=== PATIENT | female | born 1965 | race Caucasian/White ===

== ENCOUNTER 2016-09-07 11:31 | Emergency (ER) | payer MEDICAID ==
[~2016-09-07] VITALS: Ht 154.9 cm; Wt 66.3 kg
[~2016-09-07 11:31] MED LIST: AMLO10TA4 PO; FAMO-79 PO; FLUT1DIS3 INH; FOLI-17 PO; PRED20TA PO; THIA100T6 PO
[2016-09-07] MEDS ORDERED: SODIUM CHLORIDE 0.9% 1,000ML IVBOLUS ONE (12:00)
[2016-09-07] MEDS ORDERED: SODIUM CHLORIDE FLUSH 10ML SYR IVF ONE (12:00)
[2016-09-07 12:33] LABS: BLOOD UREA NITROGEN 3 mg/dL (7-18)
[2016-09-07 12:37] LABS: ASPARTATE AMINO TRANSFERASE 58 U/L (15-37)
[2016-09-07] MEDS ORDERED: KETOROLAC 30 MG/1 ML ONE (16:54)
[2016-09-07] MEDS ORDERED: PROMETHAZINE 25 MG/ML, 1ML ONE (16:55)
[2016-09-07] MEDS ORDERED: PROMETHAZINE 25 MG/ML, 1ML IM ONE (17:00)
[2016-09-07] MEDS ORDERED: KETOROLAC 30 MG/1 ML IVPush ONE (17:00)
[2016-09-07 17:06] LABS: IS PT STATUS REG ER OR PRE ER? YES
[2016-09-07 19:14] VITALS: BP 129/70
== END 2016-09-07 19:17 | disposition home or self-care (01) ==
LOC: ED 16:02
DX: G43.009 Migraine without aura, not intractable, without status migrainosus (principal); I10 Essential (primary) hypertension
CPT/HCPCS: 36415; 71010; 80053; 81001; 84484; 85025; 87077; 87086; 93005; 96361; 96372; 96374; 99285; J1885; J2550; J7030; 87186

== ENCOUNTER 2018-07-28 10:23 | Emergency (ER) | payer MEDICAID ==
[~2018-07-28] VITALS: Ht 154.9 cm; Wt 59.0 kg
[~2018-07-28 10:23] MED LIST changes: -THIA100T6 PO; +THIA100T67 PO
[2018-07-28] MEDS ORDERED: SODIUM CHLORIDE FLUSH 10ML SYR IVF ONE (11:00)
[2018-07-28] MEDS ORDERED: ASPIRIN 81 MG TABLET CHEW PO ONE (11:00)
[2018-07-28] MEDS ORDERED: KETOROLAC 30 MG/1 ML IVPush ONE (11:00)
--- NOTE | 2018-07-28 11:10 | NUR ---
BEDSIDE REPORT FROM YUNIOR ORTEGA, PT HAVING INTERMITTANT CHEST PAIN, SOB X 2 WEEKS. MIGRAINE GRECO X 2 DAYS. PT PLACED ON MONITOR, IV ESTABLISHED, PT MEDICATED WITH TORADOL AND ASA GIVEN. EKG DONE IN TRIAGE. VSS. MED REC UPDATED.
[2018-07-28] MEDS ORDERED: KETOROLAC 30 MG/1 ML ONE (11:16)
[2018-07-28] MEDS ORDERED: ASPIRIN 81 MG TABLET CHEW ONE (11:16)
[2018-07-28 11:24] LABS: BASOPHILS # (AUTO) 0.02 x10^3/uL (0-0.1); BASOPHILS % (AUTO) 1 % (0-1); EOSINOPHILS # (AUTO) 0.23 x10^3/uL (0-0.4); EOSINOPHILS % (AUTO) 6 % (1-7); LYMPHOCYTES # (AUTO) 1.24 x10^3/uL (1-3.4); LYMPHOCYTES % (AUTO) 31 % (22-44); MD NO; MEAN CORPUSCULAR HEMOGLOBIN 34.1 pg (27.0-34.8); MEAN CORPUSCULAR HGB CONC 33.4 g/dL (32.4-35.8); MEAN CORPUSCULAR VOLUME 102.2 fL (80-100); MEAN PLATELET VOLUME 8.2 fL (7.4-10.4); MONOCYTES # (AUTO) 0.31 x10^3/uL (0.2-0.8); MONOCYTES % (AUTO) 8 % (2-9); NEUTROPHILS # (AUTO) 2.23 x10^3/uL (1.8-6.8); NEUTROPHILS % (AUTO) 55 % (42-75); PLATELET COUNT 109 x10^3/uL (130-400); RED BLOOD COUNT 4.48 x10^6/uL (3.82-5.3); RED CELL DISTRIBUTION WIDTH 14.4 % (9.6-15.2)
[2018-07-28 11:34] LABS: ALANINE AMINOTRANSFERASE 43 U/L (12-78); ALBUMIN 3.4 g/dL (3.4-5.0); ANION GAP 6 mmol/L (5-15); CALCIUM 8.8 mg/dL (8.5-10.1); CHLORIDE 102 mmol/L (98-107); CREATININE 0.57 mg/dL (0.55-1.02)
[2018-07-28 11:39] LABS: ALKALINE PHOSPHATASE 87 U/L (45-117); BILIRUBIN,TOTAL 0.6 mg/dL (0.2-1.0); TOTAL PROTEIN 7.5 g/dL (6.4-8.2); TROPONIN I < 0.015 ng/mL (0.000-0.045)
--- NOTE | 2018-07-28 12:08 | NUR ---
PT RESTING IN [facility], UP FOR RECHECK
[2018-07-28 12:32] VITALS: BP 111/65
--- NOTE | 2018-07-28 12:36 | NUR ---
PT RESTING IN [facility], [facility], TBD[facility]. PT TRING TO GET AHOLD OF RIDE
== END 2018-07-28 12:52 | disposition home or self-care (01) ==
LOC: ED 11:42
DX: G43.019 Migraine without aura, intractable, without status migrainosus (principal); F17.210 Nicotine dependence, cigarettes, uncomplicated; I10 Essential (primary) hypertension
CPT/HCPCS: 36415; 71045; 80053; 83690; 84484; 85025; 93005; 96374; 99284; J1885

== ENCOUNTER 2018-09-04 02:54 | Emergency (ER) | payer MEDICAID ==
[~2018-09-04] VITALS: Ht 154.9 cm; Wt 61.0 kg
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
[2018-09-04] MEDS ORDERED: ALPR0.25 PO (03:51)
[2018-09-04] MEDS ORDERED: LISI-170 PO (03:51)
[2018-09-04] MEDS ORDERED: BUPR100T11 PO (03:51)
[2018-09-04 03:52] LABS: BASOPHILS # (AUTO) 0.03 x10^3/uL (0-0.1); BASOPHILS % (AUTO) 0 % (0-1); EOSINOPHILS % (AUTO) 5 % (1-7); LYMPHOCYTES # (AUTO) 4.23 x10^3/uL (1-3.4); LYMPHOCYTES % (AUTO) 54 % (22-44); MD NO; MEAN CORPUSCULAR HEMOGLOBIN 35.1 pg (27.0-34.8); MEAN CORPUSCULAR HGB CONC 33.6 g/dL (32.4-35.8); MEAN CORPUSCULAR VOLUME 104.5 fL (80-100); MEAN PLATELET VOLUME 8.1 fL (7.4-10.4); MONOCYTES # (AUTO) 0.69 x10^3/uL (0.2-0.8); MONOCYTES % (AUTO) 9 % (2-9); NEUTROPHILS # (AUTO) 2.47 x10^3/uL (1.8-6.8); NEUTROPHILS % (AUTO) 32 % (42-75); PLATELET COUNT 120 x10^3/uL (130-400); RED BLOOD COUNT 4.48 x10^6/uL (3.82-5.3); RED CELL DISTRIBUTION WIDTH 14.8 % (9.6-15.2)
--- NOTE | 2018-09-04 03:55 | NUR ---
pt resting calmly in bed at this time. pt cooperative with lab draw. pt gave urine sample, urine walked to lab. son allowed back in room. pt and son aware he is the only visitor allowed to see pt at this time. pt given ice chips per pt request and erp okay.
[2018-09-04 03:59] LABS: ALBUMIN 3.6 g/dL (3.4-5.0); ANION GAP 8 mmol/L (5-15); CALCIUM 8.9 mg/dL (8.5-10.1); CHLORIDE 113 mmol/L (98-107); SALICYLATE LEVEL 4.7 mg/dL (2.8-20.0)
[2018-09-04 04:01] LABS: ALANINE AMINOTRANSFERASE 51 U/L (12-78); ALKALINE PHOSPHATASE 92 U/L (45-117); BILIRUBIN,TOTAL 0.6 mg/dL (0.2-1.0); CREATININE 0.67 mg/dL (0.55-1.02)
[2018-09-04 04:02] LABS: ACETAMINOPHEN < 2 mcg/mL (10-30)
--- NOTE | 2018-09-04 04:08 | NUR ---
PT PLACED ON N/C O2 AT 3L DUE TO DESATING TO 83%. TECH IN ROOM NOW TO DO EKG. PT REMAINS RESTING IN BED AT THIS TIME.
[2018-09-04 04:25] LABS: AMPHETAMINE SCREEN, URINE Negative (Negative); BARBITURATE SCREEN, URINE Negative (Negative); BENZODIAZEPINE SCREEN, URINE Negative (Negative); CANNABINOID SCREEN, URINE Negative (Negative); COCAINE SCREEN, URINE Negative (Negative); METHADONE SCREEN, URINE Negative (Negative); OPIATE SCREEN, URINE Negative (Negative)
--- NOTE | 2018-09-04 05:44 | NUR ---
PT MAKING MULTIPLE REQUESTS. PT ASKING FOR GRECO MEDS, CRACKERS, WATER, COLD TOWELS, ETC. ERP AWARE PT C/O GRECO. PT GIVEN COLD TOWELS AND ICE CHIPS. SITTER AT DOOR. WILL CONTINUE TO MONITOR. VSS. SEE CHARTED.
--- NOTE | 2018-09-04 06:29 | NUR ---
PT RESTING IN BED CALMLY WITH EYES CLOSED. PT SON REMAINS AT BEDSIDE. CALL LIGHT WITHIN REACH. SITTER AT DOOR.
--- NOTE | 2018-09-04 07:04 | NUR ---
report received from [facility]. pt calmly resting on gurney, NAD with equal chest rise/fall, no needs at this time, son at BS, sitter in view.
--- NOTE | 2018-09-04 07:36 | NUR ---
pt assisted to BSU for void, back in [facility] with son & daughter at BS, pt unable to perform breathalyzer test.
[2018-09-04] MEDS ORDERED: KETOROLAC 30 MG/1 ML ONE (07:41)
[2018-09-04] MEDS ORDERED: DIPHENHYDRAMINE 50 MG/ML, 1ML ONE (07:41)
[2018-09-04] MEDS ORDERED: ONDANSETRON 2MG/ML, 2ML ONE (07:41)
[2018-09-04] MEDS ORDERED: KETOROLAC 30 MG/1 ML IVPush ONE (08:00)
[2018-09-04] MEDS ORDERED: DIPHENHYDRAMINE 50 MG/ML, 1ML IVPush ONE (08:00)
[2018-09-04] MEDS ORDERED: ONDANSETRON 2MG/ML, 2ML IVPush ONE (08:00)
--- NOTE | 2018-09-04 08:00 | NUR ---
pt calmly sitting up on hospital bed awake, calm & cooperative, responds approp to staff, NAD, comfort measures provided, family at BS, pt remains in safe environment, sitter in view.
[2018-09-04] MEDS ORDERED: ventolin (08:12)
[2018-09-04] MEDS ORDERED: ONDA4TAB7 PO (08:12)
--- NOTE | 2018-09-04 08:20 | NUR ---
breakfast tray given
--- NOTE | 2018-09-04 09:05 | NUR ---
pt continues to calmly sit on hospital bed awake, calm & cooperative, responds approp to staff, NAD, comfort measures provided, daughter at BS, pt remains in safe environment, sitter in view.
--- NOTE | 2018-09-04 10:44 | NUR ---
report given to Aron ORTEGA
--- NOTE | 2018-09-04 11:17 | NUR ---
DAUGHTERS IN ROOM AT THIS TIME. SITTER IN HALLWAY TO OBSERVE. ROOM IS SECURE AND PT IS RESTING IN BED COMFORTABLY.
--- NOTE | 2018-09-04 13:25 | NUR ---
pt in room. room secure. pt c/o migraine with hx of. provider made aware. lights in room turned off. cool wet towel offered but pt declined. ice chips provided. daughter in room and wishes to be called if pt is to be discharged or admitted. SHELLY [phone]
[2018-09-04] MEDS ORDERED: KETOROLAC 30 MG/1 ML IM ONE (13:30)
[2018-09-04] MEDS ORDERED: OXYcodone/APAP 5/325MG TABLET ONE (13:36)
--- NOTE | 2018-09-04 13:36 | NUR ---
[facility] ASSESSMENT INITIATED
[2018-09-04] MEDS ORDERED: OXYcodone/APAP 5/325MG TABLET PO ONE (14:00)
--- NOTE | 2018-09-04 14:18 | NUR ---
[facility] RETURNED CALL TO NOTIFY US THAT PT HAS HPN EXPANSION. CALLED [facility] FOR ASSESSMENT. SPOKE WITH CERTIFIED NURSING ATTENDANT WHO SAID THEY WILL NOTIFY ASSESOR
--- NOTE | 2018-09-04 16:42 | NUR ---
CALLED TO GET UPDATE FOR ETA OF [employer]. PERSON ANSWERING PHONE UNABLE TO GIVE A ETA. TRANSFERRED ME TO A NUMBER THAT NO ONE ANSWERED
--- NOTE | 2018-09-04 17:28 | NUR ---
pt in room awaiting hbi eval. pt provided dinner at this time. pt complaint free. pt resting in bed with tv on and lights off. room is secured and sitter in hallway.
[2018-09-04] MEDS ORDERED: NICOTINE 21 MG/24 HR PATCH.TD24 ONE (20:03)
[2018-09-04] MEDS ORDERED: ONDANSETRON ODT 4 MG ONE (20:18)
--- NOTE | 2018-09-04 20:20 | NUR ---
MULTIPLE CALLS HAVE BEEN MADE TO [facility] AND [facility] TO REQUEST A PSYCH EVAL. THIS RN HAS ALSO CALLED BOTH PFACILITIES AND AM ONLY ABLE TO GET VOICE RECORDINGS, STATING A MESSAGE WILL BE RETURNED THE NEXT BUSINESS DAY. SOC PAGED FOR CONSULT. DOC BOT IN ROOM.
[2018-09-04] MEDS ORDERED: ONDANSETRON ODT 4 MG PO ONE (20:30)
[2018-09-04] MEDS ORDERED: NICOTINE 21 MG/24 HR PATCH.TD24 TD ONE (20:30)
--- NOTE | 2018-09-04 20:45 | NUR ---
daughter in room at this time. awaiting telepsych consult. machine in room. all daughters questions answered. poc discussed and pt and family agreed
--- NOTE | 2018-09-04 21:51 | NUR ---
REPORT RECIEVED FROM DARRION ORTEGA. PT SITTING UP ON EDGE OF BED. TELEPSYCH PHYSICIAN TO BE CALLING IN A FEW MINUTES
--- NOTE | 2018-09-04 22:24 | NUR ---
PT LAYING BACK IN BED WAITING FOR TELEPSYCH CALL. SITTER AT BEDSIDE.
--- NOTE | 2018-09-04 23:14 | NUR ---
PT WATCHING TV AT THIS TIME. SITTER AT BEDSIDE. WAITING FOR TELEPSYCH PHYSICIAN TO CALL.
--- NOTE | 2018-09-04 23:59 | NUR ---
UPDATE GIVEN TO TELEPSYCH PHYSICIAN.
--- NOTE | 2018-09-05 00:08 | NUR ---
TELEPSYCH PHYSICIAN SPEAKING WITH PT.
--- NOTE | 2018-09-05 01:06 | NUR ---
PT BEING DISCHARGE HOME WITH RESOURCES. PIV REMOVED. BELONGINGS RETURNED TO PATIENT.
--- NOTE | 2018-09-05 01:20 | NUR ---
Patient/Caregiver given discharge instructions and they have confirmed that they understand the instructions. Patient ambulatory with steady gait.
[2018-09-05 01:21] VITALS: BP 122/68
== END 2018-09-05 01:24 | disposition home or self-care (01) ==
LOC: ED 04:03
DX: F10.120 Alcohol abuse with intoxication, uncomplicated (principal); Z72.9 Problem related to lifestyle, unspecified; F32.1 Major depressive disorder, single episode, moderate; F17.200 Nicotine dependence, unspecified, uncomplicated; G89.29 Other chronic pain; R51 Headache; I10 Essential (primary) hypertension
CPT/HCPCS: 36415; 80053; 80307; 85025; 93005; 96374; 96375; 99284; J1200; J1885; J2405; Q0162

== ENCOUNTER 2018-12-13 11:37 | Emergency (ER) | payer MEDICAID ==
[~2018-12-13] VITALS: Ht 154.9 cm; Wt 58.0 kg
[~2018-12-13 11:37] MED LIST changes: +ALPR0.25 PO; +BUPR100T11 PO; +LISI-170 PO; +ONDA4TAB7 PO; +ventolin
[2018-12-13 11:59] VITALS: BP 125/73
== END 2018-12-13 12:56 | disposition home or self-care (01) ==
LOC: ED 12:43
DX: L03.113 Cellulitis of right upper limb (principal); I10 Essential (primary) hypertension; F17.200 Nicotine dependence, unspecified, uncomplicated; Z98.890 Other specified postprocedural states; Z90.49 Acquired absence of other specified parts of digestive tract
CPT/HCPCS: 93005; 99283